=== PATIENT | female | born 1985 | race Caucasian/White ===

== ENCOUNTER 2016-05-20 18:56 | Emergency (ER) | payer MEDICAID ==
[2016-05-20 20:49] LABS: urine erythrocyte NEGATIVE (NEGATIVE)
[2016-05-20 20:53] LABS: microscopic required? NO
[2016-05-20 20:56] LABS: BASOPHIL % 0.6 % (0-2); PLATELET COUNT 280 x10^3mcL (130-400)
[2016-05-20 20:59] LABS: RED CELL DISTRIBUTION WIDTH 15.6 % (11.5-14.5)
[2016-05-20 21:04] LABS: CALCIUM 9.2 mg/dL (8.5-10.1); CARBON DIOXIDE 32.4 mmol/L (21-32); CHLORIDE SERUM 102 mmol/L (98-107); CREATININE SERUM 0.8 mg/dL (0.6-1.0); GFR1 > 60 mL/min; GLUCOSE SERUM 95 mg/dL (74-106); POTASSIUM SERUM 3.7 mmol/L (3.5-5.1); SODIUM SERUM 140 mmol/L (136-145)
[2016-05-20 21:06] LABS: ALBUMIN 4.1 g/dL (3.4-5.0); ALKALINE PHOSPHATASE 66 U/L (46-116); ALT/SGPT 28 U/L (14-59); AMYLASE 88 U/L (25-115); AST/SGOT 25 U/L (15-37); BILIRUBIN TOTAL 0.33 mg/dL (0.20-1.00); LIPASE 263 IU/L (73-393); TOTAL PROTEIN, SERUM 8.1 g/dL (6.4-8.2)
[2016-05-20 21:30] VITALS: BP 134/82
== END 2016-05-20 21:30 | disposition home or self-care (01) ==
LOC: ED 18:56
PROVIDERS: Emergency Medicine
DX: R10.32 Left lower quadrant pain (principal); E03.9 Hypothyroidism, unspecified; Z88.0 Allergy status to penicillin
CPT/HCPCS: Q0092

== ENCOUNTER 2016-09-23 20:57 | Emergency (ER) | payer OTHER ==
[2016-09-23 21:12] VITALS: BP 148/91
== END 2016-09-23 23:42 | disposition home or self-care (01) ==
LOC: ED 20:57
DX: S89.91XA Unspecified injury of right lower leg, initial encounter (principal); S93.601A Unspecified sprain of right foot, initial encounter; Z88.0 Allergy status to penicillin; X50.1XXA Overexertion from prolonged static or awkward postures, initial encounter; Y93.89 Activity, other specified; Y92.89 Other specified places as the place of occurrence of the external cause; Y99.8 Other external cause status

== ENCOUNTER 2017-05-01 17:56 | Emergency (ER) | payer OTHER ==
[~2017-05-01] VITALS: Ht 175.3 cm; Wt 99.8 kg
[2017-05-01 18:11] VITALS: Ht 175.3 cm; Wt 99.8 kg
[2017-05-01 20:28] LABS: UA SPECIFIC GRAVITY 1.025 (1.005-1.035); microscopic required? YES; urine erythrocyte TRACE (NEGATIVE)
[2017-05-01 20:29] LABS: BASOPHIL % 0.5 % (0-2); PLATELET COUNT 239 x10^3mcL (130-400)
[2017-05-01 20:30] LABS: RED CELL DISTRIBUTION WIDTH 16.2 % (11.5-14.5)
[2017-05-01 22:06] VITALS: BP 127/86
== END 2017-05-01 22:06 | disposition home or self-care (01) ==
LOC: ED 17:56
PROVIDERS: Emergency Medicine
DX: O20.0 Threatened abortion (principal); N80.8 Other endometriosis; Z88.0 Allergy status to penicillin; Z88.2 Allergy status to sulfonamides; Z3A.01 Less than 8 weeks gestation of pregnancy
CPT/HCPCS: 36415

== ENCOUNTER 2017-06-13 16:33 | Emergency (ER) | payer OTHER ==
[~2017-06-13] VITALS: Ht 175.3 cm; Wt 98.0 kg
[2017-06-13 16:47] VITALS: Ht 175.3 cm; Wt 98.0 kg
[2017-06-13 18:52] LABS: microscopic required? YES; urine erythrocyte 3+ (NEGATIVE)
[2017-06-13 18:54] LABS: BASOPHIL % 0.8 % (0-2); PLATELET COUNT 200 x10^3mcL (130-400)
[2017-06-13 18:57] LABS: RED CELL DISTRIBUTION WIDTH 17.1 % (11.5-14.5)
[2017-06-13 21:20] VITALS: BP 117/77
== END 2017-06-13 21:20 | disposition home or self-care (01) ==
LOC: ED 16:33
PROVIDERS: Emergency Medicine
DX: O20.0 Threatened abortion (principal); N93.8 Other specified abnormal uterine and vaginal bleeding; E03.9 Hypothyroidism, unspecified; Z3A.08 8 weeks gestation of pregnancy; Z31.82 Encounter for Rh incompatibility status; Z88.0 Allergy status to penicillin; Z88.2 Allergy status to sulfonamides; Z88.1 Allergy status to other antibiotic agents
CPT/HCPCS: 36415; J1460; Q0092